=== PATIENT | female | born 1995 | race Caucasian/White ===

== ENCOUNTER → 2018-01-14 | Outpatient (CLI) | payer OTHER ==
[~2018-01-14] MED LIST: TYLENOL-CODEINE1 TAB PO
== END | disposition home or self-care (01) ==
LOC: SONOGRAMA 08:56
DX: R10.9 Unspecified abdominal pain (principal); R10.2 Pelvic and perineal pain

== ENCOUNTER → 2019-05-24 10:59 | Outpatient (CLI) | payer OTHER | END | disposition home or self-care (01) | LOC: LAB 10:59 | DX: N30.00 Acute cystitis without hematuria (principal) ==

== ENCOUNTER 2019-10-28 11:29 | Emergency (ER) | payer OTHER ==
[~2019-10-28] VITALS: Ht 160 cm; Wt 72.6 kg
== END 2019-10-28 13:50 | disposition home or self-care (01) ==
LOC: ER 11:29
DX: S13.4XXA Sprain of ligaments of cervical spine, initial encounter (principal); M50.223 Other cervical disc displacement at C6-C7 level; V49.88XA Car occupant (driver) (passenger) injured in other specified transport accidents, initial encounter; Y93.89 Activity, other specified; Y92.413 State road as the place of occurrence of the external cause; Y99.8 Other external cause status
CPT/HCPCS: 72141

== ENCOUNTER → 2020-08-08 | Outpatient (CLI) | payer OTHER | END | disposition home or self-care (01) | LOC: SONOGRAMA 11:00 | PROVIDERS: ATTEND Radiology Diagnostic Radiology | DX: N83.292 Other ovarian cyst, left side (principal); N83.291 Other ovarian cyst, right side; N60.11 Diffuse cystic mastopathy of right breast ==

== ENCOUNTER → 2020-10-06 11:36 | Outpatient (CLI) | payer OTHER | END | disposition home or self-care (01) | LOC: LAB 11:36 | PROVIDERS: ATTEND Radiology Diagnostic Radiology | DX: E02 Subclinical iodine-deficiency hypothyroidism (principal); E78.49 Other hyperlipidemia; D64.89 Other specified anemias; E55.9 Vitamin D deficiency, unspecified ==

== ENCOUNTER → 2020-10-06 | Outpatient (CLI) | payer OTHER | END | disposition home or self-care (01) | LOC: SONOGRAMA 11:49 | PROVIDERS: ATTEND Radiology Diagnostic Radiology | DX: E03.8 Other specified hypothyroidism (principal); R10.84 Generalized abdominal pain ==

== ENCOUNTER 2021-11-20 10:45 | Outpatient (CLI) | payer OTHER | END 2021-11-20 12:30 | disposition home or self-care (01) | LOC: SONOGRAMA 10:45 | PROVIDERS: ATTEND Radiology Diagnostic Radiology | DX: R10.2 Pelvic and perineal pain (principal) ==

== ENCOUNTER 2023-07-11 09:10 | Outpatient (CLI) | payer OTHER | END 2023-07-11 09:30 | disposition home or self-care (01) | LOC: MRI 09:10 | PROVIDERS: ATTEND Radiology Diagnostic Radiology | DX: G44.011 Episodic cluster headache, intractable (principal) | CPT/HCPCS: 70553 ==

== ENCOUNTER 2023-07-11 09:31 | Outpatient (CLI) | payer OTHER ==
[2023-07-11 11:09] LABS: HEMOGLOBIN 11.7 g/dL (12.0-15.00); MEAN CELL VOLUME 88.2 fL (80.00-100.00); MEAN CORPUSCULAR HEMOGLOBIN 29.6 pg (27.00-32.0); MEAN CORPUSCULAR HGB CONC 33.5 g/dl (32.0-36.0); PLATELET COUNT 245 K/uL (150-450); RED BLOOD COUNT 3.96 M/uL (4.00-6.00); RED CELL DISTRIBUTION WIDTH 13.6 % (11.5-14.5)
[2023-07-11 11:54] LABS: ALBUMIN 3.5 gm/dL (3.4-5.0); ALKALINE PHOSPHATASE 71 U/L (50-136); ALT/SGPT 26 U/L (12-78); ANION GAP 8 (10.0-20.0); AST/SGOT 15 U/L (15-37); BILIRUBIN TOTAL 0.21 mg/dL (0.3-1.2); BILIRUBIN,CONJUGATED < 0.10 mg/dL (0.0-0.2); BILIRUBIN,UNCONJUGATED 0.11 mg/dL (0.0-0.6); BLOOD UREA NITROGEN 14 mg/dL (7-18); BUN CREA RATIO 23 (7.0-25.0); CALCIUM 8.9 mg/dL (8.5-10.1); CARBON DIOXIDE 28 mEq/L (21-32); CHLORIDE 109 mmol/L (98-107); CHOL HDL RATIO 3.4 (0-5.0); CHOLESTEROL 185 mg/dL (0-200); CREATININE SERUM 0.62 mg/dL (0.55-1.02); FERRITIN 46.5 NG/ML (8-252); GLOBULINA 3.9 G/DL (2.4-3.5); GLUCOSE FASTING 84 mg/dL (65-100); HDL 54 mg/dl (40-60); LDL 117 mg/dl (0-130); OSMOLALITY SERUM 279 MOSM/KG (275-295); POTASSIUM 4.72 mEq/L (3.5-5.1); SODIUM 140 mmol/L (136-145); T4 TOTAL 5.97 UG/DL (4.8-13.9); TOTAL PROTEIN 7.4 gm/dL (6.4-8.2); TRIGLYCERIDES 69 mg/dL (0-150); VLDL 13 (0-39)
[2023-07-11 12:17] LABS: FOLIC ACID > 20.00 ng/ml (4.78-20); VITAMIN D3 25 HYDROXY 20.23 ng/ml (30-120)
== END 2023-07-11 09:33 | disposition home or self-care (01) ==
LOC: LAB 09:31
PROVIDERS: ATTEND Radiology Diagnostic Radiology
DX: E78.01 Familial hypercholesterolemia (principal); E03.9 Hypothyroidism, unspecified; E16.2 Hypoglycemia, unspecified; G44.011 Episodic cluster headache, intractable